=== PATIENT | female | born 1960 | race Caucasian/White ===

== ENCOUNTER 2016-09-16 10:14 | Emergency (ER) | payer BC ==
[~2016-09-16] VITALS: Ht 165.1 cm; Wt 79.8 kg
[~2016-09-16 10:14] MED LIST: ASPI-498 PO; CAR125T PO; LEVOTAB51 PO; MAGNTAB16 PO; NAPR250T74 PO; TIZA4CAP7 PO; ZOLP10TA PO
[2016-09-16 10:58] LABS: Basophils # (auto) 0.1 uL; Basophils % (auto) 0.7 % (0.0-2.0); Eosinophils # (auto) 0.1 uL; Eosinophils % (auto) 0.8 % (0.0-7.0); Hematocrit 42.8 % (36.0-46.0); Hemoglobin 14.7 g/dL (12.2-16.2); Lymphocytes # (auto) 3.2 uL; Lymphocytes % (auto) 28.7 % (10.0-50.0); Mean Corpuscular Hemoglobin 30.6 pg (28.0-32.0); Mean Corpuscular Hgb Conc. 34.4 g/dL (32.0-36.0); Mean Corpuscular Volume 88.9 fL (80.0-100.0); Mean Platelet Volume 7.2 fL (7.4-10.4); Monocytes # (auto) 0.7 uL; Monocytes % (auto) 6.2 % (0.0-12.0); Neutrophils # (auto) 7.1 uL; Neutrophils % (auto) 63.6 % (37.0-80.0); Platelet Count (auto) 426 10^3/uL (140-450); White Blood Cell 11.2 10^3/uL (4.4-10.8)
[2016-09-16] MEDS ORDERED: SODIUM CHLORIDE 0.9% 1,000 ML IV ONE (11:12)
[2016-09-16] MEDS ORDERED: LABETALOL HCL 5 MG/ML 4ML SYRINGE IV ONE (11:15)
[2016-09-16] MEDS ORDERED: FUROSEMIDE 20 MG/2 ML VIAL IV ONE (11:15)
[2016-09-16] MEDS ORDERED: PROMETHAZINE HCL 25 MG/ML 1ML IV ONE (11:15)
[2016-09-16 11:23] LABS: Albumin 3.9 g/dL (3.4-5.0); BUN/Creatinine Ratio 12.8; Bilirubin, Total 0.6 mg/dL (0.2-1.0); Calcium 9.2 mg/dL (8.5-10.1); INR 0.92 (0.9-1.15); Partial Thromboplastin Time 25.7 sec (22.64-33.71); Potassium 3.7 mmol/L (3.5-5.1); Total Protein 7.6 g/dL (6.4-8.2)
[2016-09-16] MEDS ORDERED: LORazepam 0.5 MG TAB PO ONE (13:45)
[2016-09-16 14:10] LABS: Urine RBC None Seen /hpf (0 - 4)
[2016-09-16 14:20] LABS: Urine Bilirubin Negative (Negative); Urine Blood Negative /uL (Negative); Urine Color Yellow (Yellow); Urine Glucose Normal (Normal); Urine Ketone Negative (Negative); Urine Nitrite Negative (Negative); Urine Squamous Epithelial Cell FEW /hpf (<5); Urine Urobilinogen Normal (Negative); Urine pH 5.5 (5.0-8.0)
[2016-09-16] MEDS ORDERED: hydrALAZINE HCL 20 MG/ML VL IV ONE (15:00)
[2016-09-16] MEDS ORDERED: OXYCODONE W/ ACETAMINOPHEN 5/325MG TABLET PO ONE (15:00)
[2016-09-16 16:32] VITALS: BP 146/88
== END 2016-09-16 17:14 | disposition home or self-care (01) ==
LOC: ER 10:17
DX: I10 Essential (primary) hypertension (principal); G44.209 Tension-type headache, unspecified, not intractable; I25.10 Atherosclerotic heart disease of native coronary artery without angina pectoris; K21.9 Gastro-esophageal reflux disease without esophagitis; E78.5 Hyperlipidemia, unspecified; F41.1 Generalized anxiety disorder; Z88.0 Allergy status to penicillin; Z88.1 Allergy status to other antibiotic agents; Z79.82 Long term (current) use of aspirin; Z79.899 Other long term (current) drug therapy; Z90.710 Acquired absence of both cervix and uterus; Z90.49 Acquired absence of other specified parts of digestive tract
CPT/HCPCS: 36415; 71020; 80053; 81001; 82150; 83690; 83735; 84443; 85025; 85610; 85730; 93005; 94761; 96361; 96374; 96375; 99285; J0360; J1940; J2550; J3490; J7030

== ENCOUNTER 2017-05-03 09:55 | Emergency (ER) | payer BC ==
[~2017-05-03] VITALS: Ht 165.1 cm; Wt 86.2 kg
[2017-05-03 09:56] VITALS: BP 128/61
[2017-05-03] MEDS ORDERED: KETOROLAC TROMETH 60MG/2ML VIAL IM ONE (11:00)
== END 2017-05-03 11:43 | disposition home or self-care (01) ==
LOC: ER 09:55
DX: S39.012A Strain of muscle, fascia and tendon of lower back, initial encounter (principal); S30.0XXA Contusion of lower back and pelvis, initial encounter; S70.01XA Contusion of right hip, initial encounter; K21.9 Gastro-esophageal reflux disease without esophagitis; E78.5 Hyperlipidemia, unspecified; I10 Essential (primary) hypertension; Z86.73 Personal history of transient ischemic attack (TIA), and cerebral infarction without residual deficits; Z90.89 Acquired absence of other organs; Z90.710 Acquired absence of both cervix and uterus; Z79.899 Other long term (current) drug therapy; Z88.2 Allergy status to sulfonamides; Z88.0 Allergy status to penicillin; Z88.8 Allergy status to other drugs, medicaments and biological substances; W19.XXXA Unspecified fall, initial encounter; Y93.89 Activity, other specified; Y99.8 Other external cause status; Y92.89 Other specified places as the place of occurrence of the external cause
CPT/HCPCS: 72100; 72220; 96372; 99284; J1885

== ENCOUNTER 2018-09-30 11:24 | Inpatient (IN) | payer BC, OTHER ==
[~2018-09-30] VITALS: Ht 165.1 cm; Wt 91.0 kg
[2018-09-30] MEDS ORDERED: PANTOPRAZOLE 40 MG/10 ML VIAL INJ IV ONE (11:45)
[2018-09-30] MEDS ORDERED: SODIUM CHLORIDE 0.9% 1,000 ML IV ONE ×2 (11:45)
[2018-09-30 12:21] LABS: Hematocrit 36.6 % (36.0-46.0); Mean Corpuscular Hgb Conc. 32.8 g/dL (32.0-36.0); Mean Corpuscular Volume 91.5 fL (80.0-100.0); Platelet Count (auto) 333 10^3/uL (140-450); Red Blood Cells 4.01 10^6/uL (4.0-5.20); Red Cell Distribution Width 13.8 % (11.8-14.3)
[2018-09-30 12:26] LABS: Albumin 2.8 g/dL (3.4-5.0); Calcium 8.6 mg/dL (8.5-10.1); Potassium 3.7 mmol/L (3.5-5.1)
[2018-09-30 12:28] LABS: Basophils % (manual) 0 (0.0-2.0); Blast Cells 0; Eosinophils % (manual) 0 (0-7); INR 0.94 (0.9-1.15); Metamyelocytes % 0; Myelocytes % 0; Partial Thromboplastin Time 29.6 sec (23.64-32.05); Promyelocytes % 0; Reactive Lymphocytes 0
[2018-09-30 12:32] LABS: BUN/Creatinine Ratio 11.6; Bilirubin, Total 0.5 mg/dL (0.2-1.0); Total Protein 6.7 g/dL (6.4-8.2)
[2018-09-30] MEDS ORDERED: OCTREOTIDE ACETATE 100 MCG in SODIUM CHL 0.9% 50 ML IV ONE (13:00)
[2018-09-30] MEDS ORDERED: OCTREOTIDE ACETATE 500 MCG in SODIUM CHL 0.9% 99 ML IV SCH (13:00)
[2018-09-30 13:11] LABS: Band Neutrophils % (manual) 7; Lymphocytes % (manual) 10 (10.0-50.0); Monocytes % (manual) 12 (0-12)
[2018-09-30] MEDS ORDERED: ONDANSETRON HCL 4 MG/2 ML VIAL IV ONE (13:30)
[2018-09-30] MEDS ORDERED: MORPHINE SULFATE 4 MG/ML SYR/VIAL IV ONE (13:30)
[2018-09-30] MEDS ORDERED: LEVOFLOXACIN 500MG 100 ML IV ONE (14:00)
[2018-09-30] MEDS ORDERED: metroNIDAZOLE 500MG/100ML 100 ML IV ONE (14:00)
[2018-09-30] MEDS ORDERED: MONT5CHW17 PO (14:19)
[2018-09-30] MEDS ORDERED: AML5T PO (14:19)
[2018-09-30] MEDS ORDERED: FLUO-125 PO (14:19)
[2018-09-30] MEDS ORDERED: ROSU20TA14 PO (14:19)
[2018-09-30] MEDS ORDERED: CARV25TA PO (14:19)
[2018-09-30] MEDS ORDERED: FLEC50TA15 PO (14:19)
[2018-09-30] MEDS ORDERED: LISI2.5T47 PO (14:19)
[2018-09-30] MEDS ORDERED: PERCOT PO (14:47)
[2018-09-30] MEDS ORDERED: NITROGLYCERIN 0.4 MG SL TAB SL PRN (16:30)
[2018-09-30] MEDS ORDERED: MORPHINE SULF INJ 2 MG/ML SYRINGE 1ML IV PRN (16:30)
[2018-09-30] MEDS: SODIUM CHLORIDE 0.9% 1,000 ML IV SCH (16:38)
--- NOTE | 2018-09-30 18:13 | NUR ---
RECEIVED PATIENT. RECEIVED PATIENT TO THE FLOOR, A/O X4 NO SIGNS AND SYMPTOMS OF DISTRESS NOTED. PATIENT IS AMBULATORY AND AMBULATED TO THE ED. BED LOCKED IN LOWEST POSITION WITH TWO SIDE RAILS UP AND CALL LIGHT IN REACH. INSTRUCTED THE PATIENT ON THE PLAN OF CARE AND TO CALL NEEDED I WILL CONTINUE TO MONITOR Q HOURLY AND PRN.
[2018-09-30] MEDS: ONDANSETRON HCL 4 MG/2 ML VIAL IV PRN (18:34)
[2018-09-30] MEDS ORDERED: ESTR1TAB3 TD (18:34)
[2018-09-30 18:35] VITALS: BP 123/66
[2018-09-30 18:49] LABS: Urine Bacteria MOD /hpf (None Seen); Urine Blood Negative /uL (Negative); Urine Hyaline Cast MOD /lpf (0 - 2); Urine Mucus FEW (None Seen); Urine Specific Gravity 1.012 (1.001-1.035); Urine WBC 2 /hpf (0 - 5)
[2018-09-30 18:52] VITALS: BP 123/66
--- NOTE | 2018-09-30 19:10 | NUR ---
Primary MD contact Attempted to contact patient's PCP. Unable to contact, office is closed.
--- NOTE | 2018-09-30 19:45 | NUR ---
Opening Shift Note Assumed care of patient, awake and alert, oriented x 4. On room air with even and unlabored respirations. No S/S of distress or SOB. IV intact and patent. Patient turns independently in bed. Patient reports LBM was earlier today, denies diarrhea. Patient report abd pain 4/10 only upon palpation. Bed low locked position with side rails up x 2 and call light within reach. Instructed on POC for GI consult, stool sample, IVF, IV Abx, and pain management, patient verbalized understanding. Instructed to call for assist PRN, will continue to monitor for changes Q1hr and PRN.
[2018-09-30 22:00] VITALS: BP 111/60
[2018-09-30] MEDS: metroNIDAZOLE 500MG/100ML 100 ML IV SCH (22:00)
--- NOTE | 2018-09-30 22:00 | NUR ---
Cooling Measures applied. Patient currently has temp of 100.3 , cooling measures in place.
[2018-09-30] MEDS: METOPROLOL TARTRATE 25 MG TAB PO SCH (22:04)
--- NOTE | 2018-09-30 23:10 | NUR ---
Re-Assessment temp 99.7 F
[2018-09-30] MEDS: ZOLPIDEM TARTRATE 5 MG TAB PO PRN (23:15)
--- NOTE | 2018-10-01 | NUR ---
Aakash Colón NP RE: Temperature patient admit dx sepsis, patients temperature 99.7F after cooling measures for a temperature of 100.3F. Patient in no s/s of distress. Awaiting call back, will continue care
--- NOTE | 2018-10-01 00:30 | NUR ---
Received call back from REYNA Colón Updated on patient status, received new order for Tylenol 650mg PO q6hrs PRN for fever >100.2 or mild pain. Read back and verified, will carry out orders and continue care.
[2018-10-01] MEDS: ACETAMINOPHEN 325 MG TAB PO PRN ×2 (00:51→20:15)
[2018-10-01] MEDS: SODIUM CHLORIDE 0.9% 1,000 ML IV SCH ×2 (03:02→12:30)
[2018-10-01 05:00] VITALS: BP 107/62
[2018-10-01 05:10] LABS: Basophils # (auto) 0.1 uL; Basophils % (auto) 0.4 % (0.0-2.0); Eosinophils # (auto) 0.3 uL; Lymphocytes # (auto) 1.9 uL; Lymphocytes % (auto) 10.9 % (10.0-50.0); Mean Corpuscular Hemoglobin 30.5 pg (28.0-32.0); Mean Corpuscular Hgb Conc. 33.4 g/dL (32.0-36.0); Mean Corpuscular Volume 91.3 fL (80.0-100.0); Monocytes # (auto) 1.9 uL; Monocytes % (auto) 11.1 % (0.0-12.0); Neutrophils # (auto) 13.2 uL; Neutrophils % (auto) 75.6 % (37.0-80.0); Nucleated Red Blood Cells % 0.1 %; Platelet Count (auto) 300 10^3/uL (140-450); Red Blood Cells 3.62 10^6/uL (4.0-5.20); Red Cell Distribution Width 13.7 % (11.8-14.3); White Blood Cell 17.4 10^3/uL (4.4-10.8)
[2018-10-01 05:25] LABS: Albumin 2.2 g/dL (3.4-5.0); BUN/Creatinine Ratio 11.9; Calcium 7.8 mg/dL (8.5-10.1); Magnesium 2.6 mg/dL (1.6-2.6); Potassium 3.6 mmol/L (3.5-5.1)
[2018-10-01 05:28] LABS: Bilirubin, Total 0.3 mg/dL (0.2-1.0); Total Protein 5.8 g/dL (6.4-8.2)
[2018-10-01] MEDS: metroNIDAZOLE 500MG/100ML 100 ML IV SCH ×3 (05:51→21:50)
--- NOTE | 2018-10-01 07:00 | NUR ---
Closing Note patient awake resting in bed with oxygen on at 2L via NC with even and unlabored respirations. No s/s of distress. IV intact and patent infusing NS at 100ml/hr. Endorsed care to day shift RN.
--- NOTE | 2018-10-01 07:20 | NUR ---
Opening Shift Note Assumed care of patient, awake and alert. No S/S of distress/SOB or pain. Instructed on POC and to call for assist PRN, will continue to monitor for changes Q1hr and PRN. Bed locked in lowest position with two side rails up and call light in reach. Patient states she is feeling restless and cannot get comfortable, at this time.
[2018-10-01 08:00] VITALS: BP 114/70
[2018-10-01 08:47] VITALS: BP 114/70
[2018-10-01] MEDS: MORPHINE SULF INJ 2 MG/ML SYRINGE 1ML IV PRN ×2 (09:32→16:55)
[2018-10-01] MEDS: METOPROLOL TARTRATE 25 MG TAB PO SCH ×2 (09:32→21:52)
[2018-10-01] MEDS: LEVOFLOXACIN 750MG 150 ML IV SCH (09:33)
--- NOTE | 2018-10-01 09:35 | NUR ---
PATIENT COMPLAINING OF PAIN 5/10 IN ABDOMINAL AREA. MORPHINE 2 MG ADMINISTERED. WILL CONTINUE TO MONITOR.
--- NOTE | 2018-10-01 09:53 | NUR ---
Received referral to see pt regarding advanced directive and POA. Pt did acknowledge that she had requested the form. I did explain how to fill out form. Pt was aware of using the form.
[2018-10-01] MEDS ORDERED: LORazepam 0.5 MG TAB PO ONE (11:15)
--- NOTE | 2018-10-01 11:28 | NUR ---
Nutrition Consult.assessment Notes please see attached link for complete assessment Est. Needs ABW [id number] kcal (23-25 kcal/kgBW), 72-86 gms pro (1.0-1.2 gms/kgBW d/t severe hypoalbuminemia). Will continue to monitor pertinent labs and reassess nutrient need prn Addendum: 10/01/18 at [address] Amended: Links added.
[2018-10-01] MEDS: Ensure Enlive Strawberry 8oz Bottle PO SCH ×2 (12:00→18:22)
[2018-10-01 13:00] VITALS: BP 116/64
--- NOTE | 2018-10-01 14:50 | NUR ---
CALLED DR FARRELL TO REPORT LAB STOOL RESULTS OF SHIGA TOXIN. DR REGAN I WILL CALL PHARMACY DIRECTED BY TO DISCUSS APPROPRIATE ANTIBIOTICS.
--- NOTE | 2018-10-01 15:17 | NUR ---
RECEIVED A CALL FROM BENEDICTO IN PHARMACY. PER ANTIBIOTICS ARE NOT RECOMMENDED FOR THE SHIGA TOXIN THE SYMPTOMS WILL RESOLVE ON THEIR OWN.
--- NOTE | 2018-10-01 15:30 | NUR ---
PT REPORTS THAT SHE WALKS FINE AND DOES NOT NEED P.T.
--- NOTE | 2018-10-01 16:45 | NUR ---
PATIENT PROVIDED SPECIMEN CUP X 2
[2018-10-01 16:52] VITALS: BP 122/60
[2018-10-01] MEDS: ONDANSETRON HCL 4 MG/2 ML VIAL IV PRN (16:55)
--- NOTE | 2018-10-01 19:50 | NUR ---
Opening Shift Note Assumed care of patient, awake and alert, oriented x 4. On room air with even and unlabored respirations. No S/S of distress or SOB. IV intact and patent infusing NS 0.9% at 100ml/hr. Patient turns independently in bed. Patient reports LBM was today x 3 soft liquid brown stool, denies diarrhea. Patient report abd pain 6/10 only upon palpation. Bed low locked position with side rails up x 2 and call light within reach. Instructed on POC for IVF, IV Abx, and pain management, patient verbalized understanding. Instructed to call for assist PRN, will continue to monitor for changes Q1hr and PRN.
[2018-10-01] MEDS: ZOLPIDEM TARTRATE 5 MG TAB PO PRN (21:50)
[2018-10-01 22:11] VITALS: BP 124/61
[2018-10-02] MEDS: SODIUM CHLORIDE 0.9% 1,000 ML IV SCH ×3 (03:04→18:01)
[2018-10-02 05:31] VITALS: BP 131/75
[2018-10-02 06:10] LABS: Hematocrit 32.5 % (36.0-46.0); Mean Corpuscular Hemoglobin 30.7 pg (28.0-32.0); Mean Corpuscular Hgb Conc. 33.7 g/dL (32.0-36.0); Platelet Count (auto) 302 10^3/uL (140-450); Red Blood Cells 3.57 10^6/uL (4.0-5.20); Red Cell Distribution Width 13.8 % (11.8-14.3); White Blood Cell 13.5 10^3/uL (4.4-10.8)
[2018-10-02] MEDS: metroNIDAZOLE 500MG/100ML 100 ML IV SCH ×3 (06:11→22:13)
[2018-10-02 06:22] LABS: BUN/Creatinine Ratio 7.2; Calcium 7.9 mg/dL (8.5-10.1); Potassium 3.3 mmol/L (3.5-5.1)
[2018-10-02 06:34] LABS: Basophils % (manual) 0 (0.0-2.0); Blast Cells 0; Metamyelocytes % 0; Myelocytes % 0; Promyelocytes % 0; Reactive Lymphocytes 0
--- NOTE | 2018-10-02 07:00 | NUR ---
Closing Note patient awake resting in bed on room air with even and unlabored respirations. No s/s of distress. IV intact and patent infusing NS at 100ml/hr. Endorsed care to day shift RN.
[2018-10-02 07:04] LABS: Band Neutrophils % (manual) 3; Eosinophils % (manual) 1 (0-7); Lymphocytes % (manual) 18 (10.0-50.0); Monocytes % (manual) 12 (0-12)
[2018-10-02] MEDS: Ensure Enlive Strawberry 8oz Bottle PO SCH ×3 (08:00→18:00)
--- NOTE | 2018-10-02 08:00 | NUR ---
Opening Shift Note Assumed care of patient, awake and alert. No S/S of distress/SOB, 6/10 abdominal pain. Instructed on POC and to call for assist PRN, will continue to monitor for changes Q1hr and PRN.
[2018-10-02] MEDS: ONDANSETRON HCL 4 MG/2 ML VIAL IV PRN ×3 (08:40→20:11)
[2018-10-02] MEDS: MORPHINE SULF INJ 2 MG/ML SYRINGE 1ML IV PRN ×3 (08:40→20:12)
[2018-10-02] MEDS ORDERED: CETI10CA PO (08:45)
[2018-10-02] MEDS: METOPROLOL TARTRATE 25 MG TAB PO SCH ×2 (09:29→22:22)
[2018-10-02] MEDS: LEVOFLOXACIN 750MG 150 ML IV SCH (09:30)
[2018-10-02 09:35] VITALS: BP 135/76
[2018-10-02] MEDS: LORazepam 0.5 MG TAB PO PRN ×2 (11:55→17:31)
[2018-10-02 13:04] VITALS: BP 117/67
[2018-10-02] MEDS ORDERED: POTASSIUM EFFERVESENT TAB 25 MEQ PO ONE (14:00)
[2018-10-02] MEDS ORDERED: LORATADINE 10 MG TAB PO ONE (14:30)
[2018-10-02 17:10] VITALS: BP 128/72
[2018-10-02] MEDS: Pro-Stat SF 30ml Vanilla PO SCH (18:00)
--- NOTE | 2018-10-02 19:45 | NUR ---
Opening Shift Note Assumed care of patient, awake and alert, oriented x 4. On room air with even and unlabored respirations. No S/S of distress or SOB. IV intact and patent infusing NS 0.9% at 100ml/hr. Patient turns independently in bed and ambulates independently. Patient reports LBM was today, reports it is watery.Bed low locked position with side rails up x 2 and call light within reach. Instructed on POC for IVF, IV Abx, and pain management, patient verbalized understanding. Instructed to call for assist PRN, will continue to monitor for changes Q1hr and PRN.
[2018-10-02 21:31] VITALS: BP 117/70
[2018-10-02] MEDS: ZOLPIDEM TARTRATE 5 MG TAB PO PRN (22:14)
[2018-10-03 05:16] VITALS: BP 107/54
[2018-10-03 05:46] LABS: Hematocrit 33.3 % (36.0-46.0); Hemoglobin 11.3 g/dL (12.2-16.2); Mean Corpuscular Hemoglobin 30.7 pg (28.0-32.0); Mean Corpuscular Hgb Conc. 33.9 g/dL (32.0-36.0); Mean Corpuscular Volume 90.5 fL (80.0-100.0); Platelet Count (auto) 315 10^3/uL (140-450); Red Blood Cells 3.68 10^6/uL (4.0-5.20); White Blood Cell 10.5 10^3/uL (4.4-10.8)
[2018-10-03 05:47] LABS: Calcium 7.9 mg/dL (8.5-10.1); Potassium 3.5 mmol/L (3.5-5.1)
[2018-10-03 05:53] LABS: Basophils % (manual) 0 (0.0-2.0); Blast Cells 0; Myelocytes % 0; Promyelocytes % 0; Reactive Lymphocytes 0
[2018-10-03] MEDS: SODIUM CHLORIDE 0.9% 1,000 ML IV SCH ×2 (06:11→14:47)
[2018-10-03] MEDS: metroNIDAZOLE 500MG/100ML 100 ML IV SCH ×3 (06:11→22:03)
[2018-10-03 06:24] LABS: Band Neutrophils % (manual) 3; Eosinophils % (manual) 4 (0-7); Lymphocytes % (manual) 28 (10.0-50.0); Metamyelocytes % 2; Monocytes % (manual) 7 (0-12)
[2018-10-03] MEDS: CARISOPRODOL 350 MG TAB PO PRN ×2 (07:55→18:48)
[2018-10-03] MEDS: Ensure Enlive Strawberry 8oz Bottle PO SCH (08:00)
[2018-10-03] MEDS: Pro-Stat SF 30ml Vanilla PO SCH ×2 (08:00→18:17)
--- NOTE | 2018-10-03 08:00 | NUR ---
Opening Shift Note Assumed care of patient, awake and alert. No S/S of distress/SOB or pain. Instructed on POC and to call for assist PRN, will continue to monitor for changes Q1hr and PRN.
[2018-10-03 09:00] VITALS: BP 131/51
[2018-10-03] MEDS: LORATADINE 10 MG TAB PO SCH (09:52)
[2018-10-03] MEDS: METOPROLOL TARTRATE 25 MG TAB PO SCH ×2 (09:53→22:04)
[2018-10-03] MEDS: LEVOFLOXACIN 750MG 150 ML IV SCH (09:53)
[2018-10-03] MEDS: MORPHINE SULF INJ 2 MG/ML SYRINGE 1ML IV PRN ×2 (11:24→17:00)
[2018-10-03] MEDS: ONDANSETRON HCL 4 MG/2 ML VIAL IV PRN ×2 (11:24→17:00)
[2018-10-03 13:00] VITALS: BP 113/65
[2018-10-03] MEDS: OXYCODONE W/ ACETAMINOPHEN 5/325MG TABLET PO PRN ×2 (13:37→20:30)
--- NOTE | 2018-10-03 13:56 | NUR ---
Nutrition Follow-up Notes Wt.: 89.9 kg as of yesterday. Pt's asleep, no immediate family member at bedside when rounded this morning. Pt's no signs of distress noted earlier, on Clear Liquid diet with Prostat 1 pkt BID, has poor PO intake aeb 50% ave. consumed meals (x6) in last 2.5 days. Noted pt's to start today on Full Liquid diet . Est. Needs ABW [id number] kcal (23-25 kcal/kgBW), 72-86 gms pro (1.0-1.2 gms/kgBW d/t severe hypoalbuminemia). Will continue to monitor pertinent labs and reassess nutrient need prn Labs: Gluc 109 H, Ca 7.9 L; Tpro 5.8 L, Alb 2.2 L Skin: Nash scale 20, low risk, skin intact per [employer]. GI: Pt had 4x BM this morning per [employer]. PES: Altered nutrition related lab values r/t acute/chronic medical condition aeb hyperglycemia, severe hypoalb, hypocalcemia Obesity r/t food intake more than body requirement aeb 156% IBW, BMI 32.6 kg/m2 and increased body adiposity Will continue to monitor PO intake, skin status, pertinent labs and weight trend. F/u in 3 to 5 days. Rec.: 1.) Advance oral diet (Soft Cardiac diet) when medically appropriate. 2.) Continue close supervision during meals. 2.) If Albumin level continues trending down, consider Prostat 1 pkt BID. 3.) Refer pt to RD for further nutrition education and weight monitoring upon discharge. 4.) Continue current plan of care.
--- NOTE | 2018-10-03 14:10 | NUR ---
IV removal IV DC'd on the right antecubital with clean sterile technique, catheter fully intact. Pressure dressing applied to site. Patient tolerated well.
--- NOTE | 2018-10-03 14:15 | NUR ---
IV insertion IV access obtained, via clean sterile technique by inserting 20 gauge catheter at left antecubital after one attempt. IV secured properly. No trauma to site. Patient tolerated well.
[2018-10-03 17:26] VITALS: BP 121/61
--- NOTE | 2018-10-03 20:00 | NUR ---
Opening Shift Note: A&Ox4, resting in bed. Room air, pain level 3/10 in abdomen, and ambulates independently without assistive devices. Bed locked in lowest position, side rails up x2, and call light within reach. IV 20 g in left AC running NS at 100 ml/hr inserted on 10/03/18. Skin intact. Poor appetite present along with multiple loose stools per patient. POC discussed and questions answered. Will continue to round prn.
[2018-10-03 22:00] VITALS: BP 114/70
[2018-10-03] MEDS: MONTELUKAST SODIUM 10 MG TAB PO SCH (22:04)
[2018-10-03] MEDS: ZOLPIDEM TARTRATE 5 MG TAB PO PRN (22:05)
[2018-10-03] MEDS: FLECAINIDE ACETATE 50 MG TAB PO SCH (22:05)
[2018-10-04] MEDS: SODIUM CHLORIDE 0.9% 1,000 ML IV SCH ×3 (02:22→21:02)
[2018-10-04 05:00] VITALS: BP 120/72
[2018-10-04 05:35] LABS: Hematocrit 32.6 % (36.0-46.0); Hemoglobin 10.9 g/dL (12.2-16.2); Mean Corpuscular Hemoglobin 30.6 pg (28.0-32.0); Mean Corpuscular Hgb Conc. 33.6 g/dL (32.0-36.0); Mean Corpuscular Volume 91.1 fL (80.0-100.0); Platelet Count (auto) 332 10^3/uL (140-450); Red Blood Cells 3.58 10^6/uL (4.0-5.20); Red Cell Distribution Width 13.7 % (11.8-14.3); White Blood Cell 9.4 10^3/uL (4.4-10.8)
[2018-10-04 05:47] LABS: Basophils % (manual) 0 (0.0-2.0); Blast Cells 0; Eosinophils % (manual) 0 (0-7); Myelocytes % 0; Promyelocytes % 0; Reactive Lymphocytes 0
[2018-10-04] MEDS: metroNIDAZOLE 500MG/100ML 100 ML IV SCH (05:51)
[2018-10-04 06:39] LABS: Band Neutrophils % (manual) 4; Lymphocytes % (manual) 22 (10.0-50.0); Metamyelocytes % 2; Monocytes % (manual) 7 (0-12)
[2018-10-04] MEDS: Pro-Stat SF 30ml Vanilla PO SCH ×2 (08:00→18:00)
--- NOTE | 2018-10-04 08:00 | NUR ---
Opening Shift Note Assumed care of patient, awake and alert. No S/S of distress/SOB, 5/10 abdominal pain. Instructed on POC and to call for assist PRN, will continue to monitor for changes Q1hr and PRN.
[2018-10-04] MEDS: CARISOPRODOL 350 MG TAB PO PRN ×2 (08:57→17:15)
[2018-10-04 09:00] VITALS: BP 123/74
[2018-10-04] MEDS: METOPROLOL TARTRATE 25 MG TAB PO SCH ×2 (10:11→21:03)
[2018-10-04] MEDS: LEVOFLOXACIN 750MG 150 ML IV SCH (10:11)
[2018-10-04] MEDS: LORATADINE 10 MG TAB PO SCH (10:11)
[2018-10-04] MEDS: FLECAINIDE ACETATE 50 MG TAB PO SCH ×2 (10:12→21:03)
[2018-10-04] MEDS ORDERED: PANTOPRAZOLE 40 MG TAB PO ONE (11:00)
[2018-10-04] MEDS: MORPHINE SULF INJ 2 MG/ML SYRINGE 1ML IV PRN ×2 (11:52→21:03)
[2018-10-04] MEDS: ONDANSETRON HCL 4 MG/2 ML VIAL IV PRN ×2 (11:52→21:04)
[2018-10-04] MEDS: ACETAMINOPHEN 325 MG TAB PO PRN (12:08)
[2018-10-04 13:00] VITALS: BP 139/73
[2018-10-04] MEDS: metroNIDAZOLE 500 MG TAB PO SCH ×2 (13:31→21:02)
[2018-10-04 17:51] VITALS: BP 134/79
[2018-10-04] MEDS: OXYCODONE W/ ACETAMINOPHEN 5/325MG TABLET PO PRN (18:08)
--- NOTE | 2018-10-04 19:30 | NUR ---
Opening Shift Note: A&Ox4, resting in bed. Room air, pain level 4/10 in abdomen, and ambulates independently without assistive devices. Bed locked in lowest position, side rails up x2, and call light within reach. IV 20 g in left AC running NS at 100 ml/hr inserted on 10/03/18. Skin intact. Poor appetite present along with multiple loose stools per patient. POC discussed and questions answered. Will continue to round prn.
[2018-10-04] MEDS: MONTELUKAST SODIUM 10 MG TAB PO SCH (21:03)
[2018-10-04 22:00] VITALS: BP 130/72
[2018-10-04] MEDS: ZOLPIDEM TARTRATE 5 MG TAB PO PRN (22:56)
[2018-10-05] MEDS: OXYCODONE W/ ACETAMINOPHEN 5/325MG TABLET PO PRN ×4 (03:00→21:13)
[2018-10-05] MEDS: CARISOPRODOL 350 MG TAB PO PRN ×2 (04:48→12:48)
[2018-10-05 05:04] VITALS: BP 125/67
[2018-10-05 05:13] LABS: Basophils # (auto) 0 uL; Basophils % (auto) 0.5 % (0.0-2.0); Eosinophils # (auto) 0.2 uL; Eosinophils % (auto) 2.9 % (0.0-7.0); Hematocrit 31.7 % (36.0-46.0); Hemoglobin 10.8 g/dL (12.2-16.2); Lymphocytes % (auto) 23.7 % (10.0-50.0); Mean Corpuscular Hemoglobin 30.5 pg (28.0-32.0); Mean Corpuscular Volume 89.8 fL (80.0-100.0); Monocytes # (auto) 0.8 uL; Monocytes % (auto) 9.1 % (0.0-12.0); Neutrophils # (auto) 5.4 uL; Neutrophils % (auto) 63.8 % (37.0-80.0); Nucleated Red Blood Cells % 0.1 %; Platelet Count (auto) 322 10^3/uL (140-450); Red Blood Cells 3.53 10^6/uL (4.0-5.20); Red Cell Distribution Width 13.9 % (11.8-14.3); White Blood Cell 8.4 10^3/uL (4.4-10.8)
[2018-10-05 05:17] LABS: Anion Gap 10 (5-15); BUN/Creatinine Ratio 7.7; Blood Urea Nitrogen 6 mg/dL (7-18); Calcium 7.5 mg/dL (8.5-10.1); Carbon Dioxide 24 mmol/L (21-32); Chloride 110 mmol/L (98-107); GFR African American 98 mL/min; GFR Non-African American 81 mL/min; Glucose 107 mg/dL (74-106); Potassium 3.3 mmol/L (3.5-5.1); Sodium 144 mmol/L (136-145)
[2018-10-05] MEDS: metroNIDAZOLE 500 MG TAB PO SCH ×3 (05:59→21:12)
[2018-10-05] MEDS: SODIUM CHLORIDE 0.9% 1,000 ML IV SCH ×2 (05:59→16:33)
[2018-10-05] MEDS: Pro-Stat SF 30ml Vanilla PO SCH ×2 (08:00→18:00)
--- NOTE | 2018-10-05 08:00 | NUR ---
Opening Shift Note Assumed care of patient, awake and alert. No S/S of distress/SOB or pain. Stated episodes of diarrhea last night. Instructed on POC and to call for assist PRN, will continue to monitor for changes Q1hr and PRN.
[2018-10-05 09:00] VITALS: BP 146/70
[2018-10-05] MEDS: METOPROLOL TARTRATE 25 MG TAB PO SCH ×2 (09:44→21:12)
[2018-10-05] MEDS: LEVOFLOXACIN 750MG 150 ML IV SCH (09:45)
[2018-10-05] MEDS: PANTOPRAZOLE 40 MG TAB PO SCH (09:45)
[2018-10-05] MEDS: LORATADINE 10 MG TAB PO SCH (09:45)
[2018-10-05] MEDS: FLECAINIDE ACETATE 50 MG TAB PO SCH ×2 (09:46→21:12)
[2018-10-05] MEDS ORDERED: POTASSIUM CHL 20 Meq TABLET PO ONE (12:00)
[2018-10-05 13:00] VITALS: BP 132/70
[2018-10-05] MEDS: ACETAMINOPHEN 325 MG TAB PO PRN ×2 (16:48→21:13)
[2018-10-05 17:00] VITALS: BP 136/89
--- NOTE | 2018-10-05 19:30 | NUR ---
Opening Shift Note: A&Ox4, resting in bed. Room air, pain level 4/10 in abdomen, and ambulates independently without assistive devices. Bed locked in lowest position, side rails up x2, and call light within reach. IV 20 g in left AC running NS at 100 ml/hr inserted on 10/03/18. Skin intact. Poor appetite with intermittent nausea/bloating. POC discussed and questions answered. Will continue to round prn.
[2018-10-05] MEDS: MONTELUKAST SODIUM 10 MG TAB PO SCH (21:12)
[2018-10-05 22:00] VITALS: BP 138/77
[2018-10-05] MEDS: LORazepam 0.5 MG TAB PO PRN (23:00)
--- NOTE | 2018-10-05 23:00 | NUR ---
High blood pressure: Patient stated she felt like her blood pressure was elevated because she feels "tight and her head feels full with pressure". Vitals signs were BP 144/70 and HR 59. Per patient, blood pressure is high for her. Will page at 0000 for possible blood pressure medication order.
[2018-10-05] MEDS: MORPHINE SULF INJ 2 MG/ML SYRINGE 1ML IV PRN (23:48)
[2018-10-05] MEDS: ONDANSETRON HCL 4 MG/2 ML VIAL IV PRN (23:49)
[2018-10-05] MEDS: ZOLPIDEM TARTRATE 5 MG TAB PO PRN (23:49)
--- NOTE | 2018-10-06 | NUR ---
Page sent to information technology security analyst hospitalist in regards to possible order for prn BP medication. Patient takes norvasc 5 mg daily, coreg 25 mg bid, and lisinopril 5 mg daily at home. Currently she is receiving metoprolol 12.5 mg BID.
--- NOTE | 2018-10-06 01:00 | NUR ---
Ok to resume patient home blood pressure medication per social professionals hospitalist
[2018-10-06] MEDS: SODIUM CHLORIDE 0.9% 1,000 ML IV SCH (02:30)
[2018-10-06 04:51] VITALS: BP 120/60
[2018-10-06] MEDS: metroNIDAZOLE 500 MG TAB PO SCH (05:53)
--- NOTE | 2018-10-06 07:30 | NUR ---
Opening Shift Note Assumed care of patient, awake and alert. No S/S of distress/SOB, 3/10 abdominal pain. Instructed on POC and to call for assist PRN, will continue to monitor for changes Q1hr and PRN.
[2018-10-06] MEDS: Pro-Stat SF 30ml Vanilla PO SCH (08:00)
[2018-10-06] MEDS: PANTOPRAZOLE 40 MG TAB PO SCH (08:23)
[2018-10-06] MEDS: CARISOPRODOL 350 MG TAB PO PRN (08:24)
[2018-10-06] MEDS: LORATADINE 10 MG TAB PO SCH (08:25)
[2018-10-06] MEDS: FLECAINIDE ACETATE 50 MG TAB PO SCH (08:28)
[2018-10-06 09:00] VITALS: BP 138/71
[2018-10-06] MEDS ORDERED: POTASSIUM CHL 10 Meq TABLET PO SCH (10:00)
[2018-10-06] MEDS ORDERED: LISINOPRIL 5 MG TAB PO SCH (10:00)
[2018-10-06] MEDS: LEVOFLOXACIN 750MG 150 ML IV SCH (10:00)
[2018-10-06] MEDS: METOPROLOL TARTRATE 25 MG TAB PO SCH (10:00)
[2018-10-06] MEDS ORDERED: amLODIPine BESYLATE 5 MG TAB PO SCH (10:00)
[2018-10-06] MEDS ORDERED: CARVEDILOL 12.5 MG TAB PO SCH (10:00)
[2018-10-06 10:09] VITALS: BP 138/71
--- NOTE | 2018-10-06 11:55 | NUR ---
Discharge instructions given as ordered. Encourage to follow up with PMD Dr. Bruno in [place], [place] in 1 week as instructed. All questions and concerns addressed. Patient verbalized understanding. Medication reconciliation form completed and copy given to patient. IV removed with catheter intact, pressure dressing applied. Patient ambulated with all personal belongings, accompanied by staff and family member. No distress noted at time of departure.
== END 2018-10-06 11:55 | disposition home or self-care (01) | DRG 872 ==
LOC: ER 11:31 → TELE 16:16 → TELE-CENTR 18:10 → CENTRAL 10-04 11:10
PROVIDERS: ADMIT Nurse Practitioner Acute Care; ATTEND Internal Medicine
DX: A41.9 Sepsis, unspecified organism (principal); E44.0 Moderate protein-calorie malnutrition; E87.1 Hypo-osmolality and hyponatremia; A04.4 Other intestinal Escherichia coli infections; N17.9 Acute kidney failure, unspecified; G89.29 Other chronic pain; M54.5 Low back pain; I25.10 Atherosclerotic heart disease of native coronary artery without angina pectoris; K21.9 Gastro-esophageal reflux disease without esophagitis; K76.0 Fatty (change of) liver, not elsewhere classified; N28.1 Cyst of kidney, acquired; K57.30 Diverticulosis of large intestine without perforation or abscess without bleeding; E86.0 Dehydration; I49.3 Ventricular premature depolarization; E66.9 Obesity, unspecified; I12.9 Hypertensive chronic kidney disease with stage 1 through stage 4 chronic kidney disease, or unspecified chronic kidney disease; J45.909 Unspecified asthma, uncomplicated; D63.8 Anemia in other chronic diseases classified elsewhere; E78.5 Hyperlipidemia, unspecified; F41.9 Anxiety disorder, unspecified; N18.3 Chronic kidney disease, stage 3 (moderate); Z88.0 Allergy status to penicillin; Z88.2 Allergy status to sulfonamides; Z90.710 Acquired absence of both cervix and uterus; Z90.89 Acquired absence of other organs; Z80.0 Family history of malignant neoplasm of digestive organs; Z82.49 Family history of ischemic heart disease and other diseases of the circulatory system; Z82.3 Family history of stroke; Z79.899 Other long term (current) drug therapy; Z79.891 Long term (current) use of opiate analgesic; Z68.33 Body mass index [BMI] 33.0-33.9, adult
CPT/HCPCS: 36415; 71045; 74176; 80048; 80053; 81001; 82270; 83605; 83690; 83735; 84443; 84484; 85007; 85025; 85027; 85610; 85730; 87040; 87045; 87077; 87086; 87186; 87493; 93005; 96365; 96366; 96367; 96375; G0378; J1956; J2405; J3490

== ENCOUNTER → 2020-03-18 | Outpatient (CLI) | payer OTHER ==
[~2020-03-18] MED LIST changes: +AML5T PO; -CAR125T PO; +CARV25TA PO; +CETI10CA PO; +ESTR1TAB3 TD; +FLEC50TA15 PO; +FLUO-125 PO; +LISI2.5T47 PO; -MAGNTAB16 PO; +MONT5CHW17 PO; +PERCOT PO; +ROSU20TA14 PO
== END | disposition home or self-care (01) ==
LOC: LAB 14:55
PROVIDERS: ATTEND Nurse Practitioner Family
DX: U07.1 COVID-19 (principal)
CPT/HCPCS: C9803; U0003

== ENCOUNTER → 2020-08-10 | Outpatient (CLI) | payer BC ==
[~2020-08-10] MED LIST changes: -MONT5CHW17 PO; +MONT5CHW23 PO
[2020-08-10 07:56] LABS: Basophils # (auto) 0.1 10 ^3/uL (0-0.2); Basophils % (auto) 0.7 % (0.0-2.0); Eosinophils # (auto) 0.2 10 ^3/uL (0-0.8); Eosinophils % (auto) 2.2 % (0.0-7.0); Hematocrit 34.7 % (36.0-46.0); Hemoglobin 11.9 g/dL (12.2-16.2); Lymphocytes # (auto) 2.7 10 ^3/uL (0.4-5.4); Lymphocytes % (auto) 31.6 % (10.0-50.0); Mean Corpuscular Hemoglobin 31.4 pg (28.0-32.0); Mean Corpuscular Hgb Conc. 34.3 g/dL (32.0-36.0); Mean Corpuscular Volume 91.5 fL (80.0-100.0); Monocytes # (auto) 0.7 10 ^3/uL (0-1.3); Monocytes % (auto) 8.1 % (0.0-12.0); Neutrophils # (auto) 4.9 10 ^3/uL (1.6-8.6); Neutrophils % (auto) 57.4 % (37.0-80.0); Platelet Count (auto) 296 10^3/uL (140-450); Red Blood Cells 3.79 10^6/uL (4.0-5.20); Red Cell Distribution Width 13.9 % (11.8-14.3); White Blood Cell 8.5 10^3/uL (4.4-10.8)
[2020-08-10 08:31] LABS: Potassium 4.4 mmol/L (3.5-5.1)
[2020-08-10 08:43] LABS: Albumin 3.7 g/dL (3.4-5.0); BUN/Creatinine Ratio 16.8; Bilirubin, Total 0.7 mg/dL (0.2-1.0); Calcium 8.9 mg/dL (8.5-10.1); Total Protein 7.4 g/dL (6.4-8.2)
== END | disposition home or self-care (01) ==
LOC: LAB 07:31
PROVIDERS: ATTEND Internal Medicine Cardiovascular Disease
DX: I11.9 Hypertensive heart disease without heart failure (principal); D50.8 Other iron deficiency anemias; E78.00 Pure hypercholesterolemia, unspecified
CPT/HCPCS: 36415; 80053; 80061; 85025

== ENCOUNTER 2020-09-11 14:30 | Emergency (ER) | payer BC ==
[~2020-09-11] VITALS: Ht 165.1 cm; Wt 88.5 kg
[2020-09-11] MEDS ORDERED: LIDOCAINE 1% HCL (LOCAL ANESTH.) INJ 20ML MDV ONE (14:39)
[2020-09-11] MEDS ORDERED: TETANUS-DIPTH-ACEL PERTUSSIS 0.5ML SYR Tdap IM ONE (15:00)
[2020-09-11 15:48] VITALS: BP 105/78
== END 2020-09-11 15:35 | disposition home or self-care (01) ==
LOC: ER 14:30
DX: S81.811A Laceration without foreign body, right lower leg, initial encounter (principal); I25.10 Atherosclerotic heart disease of native coronary artery without angina pectoris; K21.9 Gastro-esophageal reflux disease without esophagitis; E78.5 Hyperlipidemia, unspecified; I10 Essential (primary) hypertension; G89.29 Other chronic pain; M54.5 Low back pain; Z88.0 Allergy status to penicillin; Z88.2 Allergy status to sulfonamides; Z79.82 Long term (current) use of aspirin; Z79.899 Other long term (current) drug therapy; Z98.890 Other specified postprocedural states; Z90.710 Acquired absence of both cervix and uterus; Z90.89 Acquired absence of other organs; W26.8XXA Contact with other sharp object(s), not elsewhere classified, initial encounter; Y93.89 Activity, other specified; Y92.89 Other specified places as the place of occurrence of the external cause; Y99.8 Other external cause status
CPT/HCPCS: 12002; 90471; 90715; 99283; J2001

== ENCOUNTER 2021-01-07 07:20 | Emergency (ER) | payer BC ==
[~2021-01-07] VITALS: Ht 165.1 cm; Wt 90.7 kg
[~2021-01-07 07:20] MED LIST changes: -ESTR1TAB3 TD; +ESTR1TAB6 TD; +FLEC1TAB PO; -FLEC50TA15 PO
[2021-01-07 07:42] VITALS: BP 99/57
== END 2021-01-07 08:10 | disposition home or self-care (01) ==
LOC: ER 07:20
DX: S92.501A Displaced unspecified fracture of right lesser toe(s), initial encounter for closed fracture (principal); K21.9 Gastro-esophageal reflux disease without esophagitis; E78.5 Hyperlipidemia, unspecified; I10 Essential (primary) hypertension; Z90.710 Acquired absence of both cervix and uterus; W18.39XA Other fall on same level, initial encounter; Y93.89 Activity, other specified; Y92.89 Other specified places as the place of occurrence of the external cause; Y99.8 Other external cause status
CPT/HCPCS: 73630; 99283; L3260

== ENCOUNTER 2022-05-17 08:29 | Emergency (ER) | payer BC ==
[~2022-05-17] VITALS: Ht 165.1 cm; Wt 89.4 kg
[2022-05-17] MEDS ORDERED: KETOROLAC TROMETH 30 MG/ML 1ML VIAL IV ONE (09:15)
[2022-05-17 09:22] LABS: Basophils # (auto) 0.1 10 ^3/uL (0-0.2); Basophils % (auto) 1.4 % (0.0-2.0); Eosinophils # (auto) 0.4 10 ^3/uL (0-0.8); Eosinophils % (auto) 5.1 % (0.0-7.0); Hematocrit 31.9 % (36.0-46.0); Lymphocytes # (auto) 2.1 10 ^3/uL (0.4-5.4); Lymphocytes % (auto) 27.7 % (10.0-50.0); Mean Corpuscular Hemoglobin 32.1 pg (28.0-32.0); Mean Corpuscular Hgb Conc. 34.4 g/dL (32.0-36.0); Mean Corpuscular Volume 93.4 fL (80.0-100.0); Monocytes # (auto) 0.6 10 ^3/uL (0-1.3); Monocytes % (auto) 8.1 % (0.0-12.0); Neutrophils # (auto) 4.3 10 ^3/uL (1.6-8.6); Neutrophils % (auto) 57.7 % (37.0-80.0); Red Blood Cells 3.41 10^6/uL (4.0-5.20); Red Cell Distribution Width 14.1 % (11.8-14.3); White Blood Cell 7.5 10^3/uL (4.4-10.8)
[2022-05-17 09:38] LABS: Albumin 3.2 g/dL (3.4-5.0); Calcium 8.8 mg/dL (8.5-10.1); INR 0.83 (0.9-1.15); Partial Thromboplastin Time 24.1 sec (24.6-33.4); Potassium 4.5 mmol/L (3.5-5.1)
[2022-05-17 09:41] LABS: BUN/Creatinine Ratio 11.1; Bilirubin, Total 0.4 mg/dL (0.2-1.0); Total Protein 6.4 g/dL (6.4-8.2)
[2022-05-17] MEDS ORDERED: IOHEXOL 300 MG/ML 100ML BOTTLE IJ ONE (09:52)
[2022-05-17 11:25] LABS: Urine Bacteria FEW /hpf (None Seen); Urine Blood Negative /uL (Negative); Urine Hyaline Cast FEW /lpf (0 - 2); Urine Specific Gravity 1.011 (1.001-1.035); Urine WBC 1 /hpf (0 - 5)
[2022-05-17 12:33] VITALS: BP 122/53
== END 2022-05-17 12:49 | disposition home or self-care (01) ==
LOC: ER 08:29
DX: S00.00XA Unspecified superficial injury of scalp, initial encounter (principal); S16.1XXA Strain of muscle, fascia and tendon at neck level, initial encounter; S39.012A Strain of muscle, fascia and tendon of lower back, initial encounter; I25.10 Atherosclerotic heart disease of native coronary artery without angina pectoris; I10 Essential (primary) hypertension; F32.9 Major depressive disorder, single episode, unspecified; K21.9 Gastro-esophageal reflux disease without esophagitis; E78.5 Hyperlipidemia, unspecified; Z88.2 Allergy status to sulfonamides; Z79.899 Other long term (current) drug therapy; Z98.890 Other specified postprocedural states; Z90.710 Acquired absence of both cervix and uterus; Z90.89 Acquired absence of other organs; W18.39XA Other fall on same level, initial encounter; Y93.89 Activity, other specified; Y92.89 Other specified places as the place of occurrence of the external cause; Y99.8 Other external cause status
CPT/HCPCS: 36415; 70450; 72125; 74177; 80053; 81001; 85025; 85610; 85730; 93005; 96374; 99285; J1885; Q9967

== ENCOUNTER → 2022-10-12 | Outpatient (CLI) | payer BC ==
[~2022-10-12] MED LIST changes: +MONT5CHW12 PO; -MONT5CHW23 PO
[2022-10-12 07:31] LABS: Basophils # (auto) 0.1 10 ^3/uL (0-0.2); Basophils % (auto) 1.2 % (0.0-2.0); Eosinophils # (auto) 0.1 10 ^3/uL (0-0.8); Eosinophils % (auto) 1.7 % (0.0-7.0); Hematocrit 36.3 % (36.0-46.0); Hemoglobin 12.3 g/dL (12.2-16.2); Lymphocytes # (auto) 2.4 10 ^3/uL (0.4-5.4); Lymphocytes % (auto) 27.4 % (10.0-50.0); Mean Corpuscular Hemoglobin 31.4 pg (28.0-32.0); Mean Corpuscular Hgb Conc. 33.9 g/dL (32.0-36.0); Mean Corpuscular Volume 92.5 fL (80.0-100.0); Monocytes # (auto) 0.8 10 ^3/uL (0-1.3); Monocytes % (auto) 8.5 % (0.0-12.0); Neutrophils # (auto) 5.4 10 ^3/uL (1.6-8.6); Neutrophils % (auto) 61.2 % (37.0-80.0); Red Blood Cells 3.92 10^6/uL (4.0-5.20); Red Cell Distribution Width 13.4 % (11.8-14.3); White Blood Cell 8.9 10^3/uL (4.4-10.8)
[2022-10-12 08:20] LABS: Calcium 8.9 mg/dL (8.5-10.1); Potassium 4.2 mmol/L (3.5-5.1)
[2022-10-12 08:25] LABS: Bilirubin, Total 0.6 mg/dL (0.2-1.0); Total Protein 7.1 g/dL (6.4-8.2)
== END | disposition home or self-care (01) ==
LOC: LAB 07:18
PROVIDERS: ATTEND Internal Medicine Cardiovascular Disease
DX: I11.9 Hypertensive heart disease without heart failure (principal); E78.00 Pure hypercholesterolemia, unspecified; D50.8 Other iron deficiency anemias
CPT/HCPCS: 36415; 80053; 80061; 85025

== ENCOUNTER → 2023-03-16 | Outpatient (CLI) | payer BC ==
[2023-03-16 07:36] LABS: Basophils # (auto) 0 10 ^3/uL (0-0.2); Basophils % (auto) 0.6 % (0.0-2.0); Eosinophils # (auto) 0 10 ^3/uL (0-0.8); Hematocrit 38.6 % (36.0-46.0); Lymphocytes # (auto) 1.1 10 ^3/uL (0.4-5.4); Lymphocytes % (auto) 15.4 % (10.0-50.0); Mean Corpuscular Hgb Conc. 33.7 g/dL (32.0-36.0); Monocytes # (auto) 0.4 10 ^3/uL (0-1.3); Monocytes % (auto) 5.7 % (0.0-12.0); Neutrophils # (auto) 5.8 10 ^3/uL (1.6-8.6); Neutrophils % (auto) 78.3 % (37.0-80.0); Red Cell Distribution Width 13.1 % (11.8-14.3); White Blood Cell 7.4 10^3/uL (4.4-10.8)
[2023-03-16 08:53] LABS: Alanine Aminotransferase 23 U/L (7-40); Albumin 4.9 g/dL (3.2-4.8); Alkaline Phosphatase 64 U/L (46-116); Anion Gap 10 (5-15); Aspartate Aminotransferase 16 U/L (13-40); BUN/Creatinine Ratio 13.6 (10.0-20.0); Bilirubin, Total 0.8 mg/dL (0.2-1.0); Blood Urea Nitrogen 14 mg/dL (9-23); Calcium 10.2 mg/dL (8.5-10.1); Carbon Dioxide 22 mmol/L (20-30); Chloride 106 mmol/L (98-107); Cholesterol 169 mg/dL (< 200); Glucose 124 mg/dL (74-106); HDL Cholesterol 50 mg/dL (40-59); LDL Cholesterol 97 mg/dL (< 100); Potassium 4.2 mmol/L (3.5-5.1); Sodium 138 mmol/L (136-145); Triglycerides 149 mg/dL (< 150)
[2023-03-16 08:54] LABS: Total Protein 7.6 g/dL (5.7-8.2)
== END | disposition home or self-care (01) ==
LOC: LAB 07:17
DX: D50.8 Other iron deficiency anemias (principal); E78.00 Pure hypercholesterolemia, unspecified; R79.89 Other specified abnormal findings of blood chemistry
CPT/HCPCS: 36415; 80053; 80061; 85025

== ENCOUNTER → 2023-10-18 | Outpatient (CLI) | payer BC ==
[~2023-10-18] MED LIST changes: +CARV-217 PO; -CARV25TA PO
[2023-10-18 09:39] LABS: Basophils # (auto) 0.1 10 ^3/uL (0-0.2); Basophils % (auto) 0.8 % (0.0-2.0); Eosinophils # (auto) 0.4 10 ^3/uL (0-0.8); Eosinophils % (auto) 2.5 % (0.0-7.0); Hematocrit 34.4 % (36.0-46.0); Hemoglobin 11.7 g/dL (12.2-16.2); Lymphocytes # (auto) 2.5 10 ^3/uL (0.4-5.4); Lymphocytes % (auto) 15.8 % (10.0-50.0); Mean Corpuscular Hemoglobin 31.3 pg (28.0-32.0); Mean Corpuscular Hgb Conc. 34.1 g/dL (32.0-36.0); Mean Corpuscular Volume 91.7 fL (80.0-100.0); Monocytes # (auto) 1.7 10 ^3/uL (0-1.3); Monocytes % (auto) 10.8 % (0.0-12.0); Neutrophils # (auto) 11.1 10 ^3/uL (1.6-8.6); Neutrophils % (auto) 70.1 % (37.0-80.0); Red Blood Cells 3.75 10^6/uL (4.0-5.20); Red Cell Distribution Width 14.6 % (11.8-14.3); White Blood Cell 15.8 10^3/uL (4.4-10.8)
[2023-10-18 09:48] LABS: Urine Bacteria MANY /hpf (None Seen); Urine Blood Negative /uL (Negative); Urine Budding Yeast OCCASIONAL /hpf (None Seen); Urine Clarity Turbid (Clear); Urine Color Yellow (Yellow); Urine Hyaline Cast MANY /lpf (0 - 2); Urine Mucus FEW (None Seen); Urine Protein, UAD TRACE (Negative); Urine Specific Gravity 1.026 (1.001-1.035); Urine Urobilinogen 2 mg/dL (Negative); Urine WBC 8 /hpf (0 - 5); Urine pH 5.5 (5.0-9.0)
[2023-10-18 11:14] LABS: Alanine Aminotransferase 22 U/L (7-40); Albumin 4.4 g/dL (3.2-4.8); Alkaline Phosphatase 71 U/L (46-116); Anion Gap 6 (5-15); Aspartate Aminotransferase 20 U/L (13-40); BUN/Creatinine Ratio 13.8 (10.0-20.0); Blood Urea Nitrogen 17 mg/dL (9-23); Calcium 9.9 mg/dL (8.5-10.1); Carbon Dioxide 26 mmol/L (20-30); Chloride 106 mmol/L (98-107); Glucose 128 mg/dL (74-106); Potassium 4.7 mmol/L (3.5-5.1); Sodium 138 mmol/L (136-145)
[2023-10-18 11:15] LABS: Bilirubin, Total 0.8 mg/dL (0.2-1.0); Creatinine, Urine 183.87 mg/dL (30.0-125.0)
[2023-10-18 11:16] LABS: Total Protein 6.8 g/dL (5.7-8.2)
== END | disposition home or self-care (01) ==
LOC: LAB 09:22
DX: E03.9 Hypothyroidism, unspecified (principal); E11.9 Type 2 diabetes mellitus without complications
CPT/HCPCS: 36415; 80053; 81001; 82043; 82570; 83036; 85025

== ENCOUNTER 2023-12-25 08:37 | Emergency (ER) | payer BC ==
[~2023-12-25] VITALS: Ht 165.1 cm; Wt 88.5 kg
[2023-12-25 09:13] LABS: Chloride 103 mmol/L (98-107); Potassium 3.9 mmol/L (3.5-5.1); Sodium 133 mmol/L (136-145)
[2023-12-25 09:14] LABS: Anion Gap 4 (5-15); Carbon Dioxide 26 mmol/L (20-30)
[2023-12-25 09:15] LABS: Basophils # (auto) 0 10 ^3/uL (0-0.2); Basophils % (auto) 0.8 % (0.0-2.0); Calcium 9.8 mg/dL (8.7-10.4); Eosinophils # (auto) 0.2 10 ^3/uL (0-0.8); Eosinophils % (auto) 2.9 % (0.0-7.0); Hematocrit 36.4 % (36.0-46.0); Hemoglobin 12.5 g/dL (12.2-16.2); Lymphocytes # (auto) 2.3 10 ^3/uL (0.4-5.4); Lymphocytes % (auto) 37.4 % (10.0-50.0); Mean Corpuscular Hemoglobin 31.4 pg (28.0-32.0); Mean Corpuscular Hgb Conc. 34.2 g/dL (32.0-36.0); Mean Corpuscular Volume 91.9 fL (80.0-100.0); Monocytes # (auto) 0.7 10 ^3/uL (0-1.3); Monocytes % (auto) 10.9 % (0.0-12.0); Platelet Count (auto) 297 10^3/uL (140-450); Red Blood Cells 3.96 10^6/uL (4.0-5.20); Red Cell Distribution Width 13.4 % (11.8-14.3); White Blood Cell 6.3 10^3/uL (4.4-10.8)
[2023-12-25 09:19] LABS: Glucose 154 mg/dL (74-106)
[2023-12-25 09:20] LABS: BUN/Creatinine Ratio 16.1 (10.0-20.0); Blood Urea Nitrogen 18 mg/dL (9-23)
[2023-12-25] MEDS: SODIUM CHLORIDE 0.9% 1,000 ML IV ONE (09:41)
[2023-12-25 12:13] LABS: Urine Bacteria FEW /hpf (None Seen); Urine Blood Negative /uL (Negative); Urine Clarity Clear (Clear); Urine Color Colorless (Yellow); Urine Protein, UAD Negative (Negative); Urine Specific Gravity 1.007 (1.001-1.035); Urine Urobilinogen Normal (Negative); Urine WBC 1 /hpf (0 - 5); Urine pH 5.5 (5.0-9.0)
[2023-12-25 12:14] VITALS: PULSE 57; RESP 17; O2SAT 92
[2023-12-25] MEDS: SODIUM CHLORIDE 0.9% 2,000 ML IV ONE (13:13)
[2023-12-25 14:40] VITALS: BP 111/64
[2023-12-25] MEDS ORDERED: LORA-1121 PO (14:40)
== END 2023-12-25 14:46 | disposition home or self-care (01) ==
LOC: ER 08:37
DX: E86.0 Dehydration (principal); I10 Essential (primary) hypertension; E78.5 Hyperlipidemia, unspecified; K21.9 Gastro-esophageal reflux disease without esophagitis; I25.10 Atherosclerotic heart disease of native coronary artery without angina pectoris; Z90.710 Acquired absence of both cervix and uterus; Z90.89 Acquired absence of other organs; Z98.890 Other specified postprocedural states; Z79.899 Other long term (current) drug therapy; Z88.2 Allergy status to sulfonamides
CPT/HCPCS: 36415; 70450; 80048; 81001; 84484; 85025; 93005; 96360; 96361; 99284; J7030

== ENCOUNTER 2024-06-06 06:40 | Emergency (ER) | payer BC ==
[~2024-06-06] VITALS: Ht 165.1 cm; Wt 79.6 kg
[~2024-06-06 06:40] MED LIST changes: +LORA-1121 PO
--- NOTE | 2024-06-06 07:23 | ED.PDOC ---
GI ASSESSMENT HPI Comments 64-year-old female with PMHx Diverticulosis presents to the ER with a chief complaint of abdominal pain and nausea x 1 day. Patient states that she felt a "pop on the left side of my stomach and then the pain continued". Patient states that pain is on her LLQ, worsens when she jumps. Patient also is reporting some nasal congestion and abdomen bloating. PSHx Hysterectomy. No other symptoms or modifying factors present at this time. Chief Complaint: Abdominal Pain Time Seen by MD: 07:11 Primary Care Provider: SONYA Reviewed Notes: Medications, Allergies Allergies: Coded Allergies: Sulfa Antibiotics (Verified Allergy, Unknown, 10/01/18) Home Meds Active Scripts Lorazepam (ATIVAN TABLET) 0.5 Mg Tb, 1 TAB PO DAILY for 10 Days, #10 TAB Prov:EMILY WEBER MD 12/25/23 Reported Medications Cetirizine Hcl (Zyrtec Allergy) 10 Mg Cap, 10 MG PO BID, CAP 10/02/18 Estradiol (Estradiol) 1 Mg Tab, TD, MG 09/30/18 Oxycodone W/ Acetaminophen (Percocet 5/325MG) 1 Tab Tb, 1 TAB PO, #90 TAB 09/30/18 Carvedilol (Coreg) 25 Mg Tab, 25 MG PO BID, TAB 09/30/18 Rosuvastatin Calcium (Crestor) 20 Mg Tab, 20 MG PO DAILY, TAB 09/30/18 Flecainide Acetate (Flecainide Acetate) 50 Mg Tab, 50 MG PO BID, TAB 09/30/18 Montelukast Sodium (Singulair) 5 Mg Chw, 10 MG PO DAILY, CHW 09/30/18 Lisinopril (Lisinopril) 2.5 Mg Tab, 5 MG PO DAILY, TAB 09/30/18 Amlodipine Besylate (NORVASC TABLET) 5 Mg Tb, 1 TAB PO DAILY, #30 TAB 5 Refills 09/30/18 Fluoxetine Hcl (Fluoxetine Hcl) 20 Mg Cap, 40 MG PO DAILY, MG 09/30/18 Levocetirizine Hydrochloride (LEVOCETIRIZINE DIHYDROCHL) Dhcl 5MG Tab, PO DAILY, TAB 12/10/15 Tizanidine Hydrochloride (TIZANIDINE HCL) 4 Mg Cap, 4 MG PO TID, CAP 12/10/15 Zolpidem Tartrate (Ambien) 10 Mg Tab, 12.5 MG PO HS, TAB 12/10/15 Naproxen (Naprosyn) 250 Mg Tab, 550 MG PO BID, TAB 12/10/15 Aspirin (ASPIRIN 81) 81 Mg Tab, 81 MG PO DAILY, TAB 12/10/15 Information Source: Patient Mode of Arrival: Ambulatory Timing: Hours, Days Duration: Since onset Prehospital treatment: None Quality: Aching Vomitus: None Stool: Normal Severity: Moderate Recent: None Recent Hx of: None Pain Location: LLQ Associated sign and symptoms: Nausea, Abdominal Pain Past Medical History PAST MEDICAL HISTORY: CAD, Depression, GERD, High Lipids, HTN Surgical History: , Hysterectomy, Tonsillectomy DELIVERY DEPARTMENT SUPERVISOR History: No Pertinent DELIVERY DEPARTMENT SUPERVISOR History Family History Family History: Reviewed,noncontributory to illness Social History Smoker: Non-Smoker Alcohol: Occasionally Drugs: Denies Drug Use Lives In: Home Constitutional: denies: chills, diaphoresis, fatigue, fever, malaise, sweats, weakness, others EENTM: reports: nose congestion; denies: blurred vision, double vision, ear bleeding, ear discharge, ear drainage, ear pain, ear ringing, eye pain, eye redness, hearing loss, mouth pain, mouth swelling, nasal discharge, nose bleeding, nose pain, photophobia, tearing, throat pain, throat swelling, voice changes, others Respiratory: denies: cough, hemoptysis, orthopnea, SOB at rest, shortness of breath, SOB with excertion, stridor, wheezing, others Cardiovascular: denies: chest pain, dizzy spells, diaphoresis, Dyspnea on exertion, edema, irregular heart beat, left arm pain, lightheadedness, palpitations, PND, syncope, others Gastrointestinal: reports: abdominal pain, nausea; denies: abdomen distended, blood streaked bowels, constipated, diarrhea, dysphagia, difficulty swallowing, hematemesis, melena, poor appetite, poor fluid intake, rectal bleeding, rectal pain, vomiting, others Genitourinary: denies: abnormal vagina bleeding, burning, dyspareunia, dysuria, flank pain, frequency, hematuria, incontinence, pain, , vagina discharge, urgency, others Neurological: denies: dizziness, fainting, headache, left sided numbness, left sided weakness, numbness, paresthesia, pre-existing deficit, right sided numbness, right sided weakness, seizure, speech problems, tingling, tremors, weakness, others Musculoskeletal: denies: back pain, gout, joint pain, joint swelling, muscle pain, muscle stiffness, neck pain, others Integumetry: denies: bruises, change in color, change in hair/nails, dryness, laceration, lesions, lumps, rash, wounds, others Allergic/Immunocompromised: denies: Difficulty Healing, Frequent Infections, Hives, Itching, others Hematologic/Lymphatic: denies: anemia, blood clots, easy bleeding, easy bruising, swollen glands, others Endocrine: denies: excessive hunger, excessive sweating, excessive thirst, excessive urination, flushing, intolerance to cold, intolerance to heat, unexplained weight gain, unexplained weight loss, others Psychiatric: denies: anxiety, bipolar disorder, depression, hopeless, panic disorder, schizophrenia, sleepless, suicidal, others All Other Systems: Reviewed and Negative Physical Exam General Appearance: Moderate Distress, Normal HEENT: Normal ENT Inspection, Pharynx Normal, TMs Normal Neck: Full Range of Motion, Non-Tender, Normal, Normal Inspection Respiratory: Chest Non-Tender, Lungs Clear, No Accessory Muscle Use, No Respiratory Distress, Normal Breath Sounds Cardiovascular: No Edema, No JVD, No Murmur, No Gallop, Normal Peripheral Pulses, Regular Rate/Rhythm Breast Exam: Deferred Gastrointestinal: LLQ, No Organomegaly, No Pulsatile Mass, Normal Bowel Sounds, Soft Genitalia: Deferred Pelvic: Deferred Rectal: Deferred Extremities: No calf tenderness, Normal capillary refill, Normal inspection, Normal range of motion, Non-tender, No pedal edema Musculoskeletal : Apperance: Normal Neurologic: Alert, cardiac rn II-XII nml as Tested, No Motor Deficits, Normal Affect, Normal Mood, No Sensory Deficits Cerebellar Function: Normal Reflexes: Normal Skin: Dry, Normal Color, Warm Peripheral Pulses: 3+ Radial (R), 3+ Radial (L) Lymphatic: No Adenopathy Was a procedure done? Was a procedure done?: No GI differential Dx Differential Diagnosis: Constipation, Diverticular disease, Esophagitis, Gastritis/PUD, Gastroenteritis X-Ray, Labs, Meds, VS Vital Signs Date Time Temp Pulse Resp B/P (MAP) Pulse Ox O2 Delivery O2 Flow Rate FiO2 06/06/24 06:51 99.4 92 16 109/77 (88) 97 Lab Test 06/06/24 07:16 Range/Units White Blood Count 6.5 4.4-10.8 10^3/uL Red Blood Count 4.22 4.0-5.20 10^6/uL Hemoglobin 12.7 12.2-16.2 g/dL Hematocrit 38.7 36.0-46.0 % Mean Corpuscular Volume 91.6 80.0-100.0 fL Mean Corpuscular Hemoglobin 30.1 28.0-32.0 pg Mean Corpuscular Hemoglobin Concent 32.9 32.0-36.0 g/dL Red Cell Distribution Width 13.8 11.8-14.3 % Platelet Count 295 140-450 10^3/uL Mean Platelet Volume 7.0 6.9-10.8 fL Neutrophils (%) (Auto) 56.7 37.0-80.0 % Lymphocytes (%) (Auto) 30.2 10.0-50.0 % Monocytes (%) (Auto) 10.0 0.0-12.0 % Eosinophils (%) (Auto) 2.2 0.0-7.0 % Basophils (%) (Auto) 0.9 0.0-2.0 % Neutrophils # (Auto) 3.7 1.6-8.6 10 ^3/uL Lymphocytes # (Auto) 2.0 0.4-5.4 10 ^3/uL Monocytes # (Auto) 0.6 0-1.3 10 ^3/uL Eosinophils # (Auto) 0.1 0-0.8 10 ^3/uL Basophils # (Auto) 0.1 0-0.2 10 ^3/uL Nucleated Red Blood Cells 0.1 % Sodium Level 137 136-145 mmol/L Potassium Level 4.0 3.5-5.1 mmol/L Chloride Level 103 98-107 mmol/L Carbon Dioxide Level 25 20-31 mmol/L Anion Gap 9 5-15 Blood Urea Nitrogen 12 9-23 mg/dL Creatinine 0.95 0.550-1.02 mg/dL Glomerular Filtration Rate Calc 67 >90 mL/min BUN/Creatinine Ratio 12.6 10.0-20.0 Serum Glucose 95 74-106 mg/dL Calcium Level 9.8 8.7-10.4 mg/dL Patient alert. Complaining of left lower quadrant pain. Vitals stable. Answering questions. History of diverticulosis. WBC within normal limits. Hemoglobin within normal limits. Mild tenderness upon deep palpation on the left lower quadrant. Kidney function within normal limits. Sinus congestion. Nasal speech. Possible sinusitis. Was given prescription of Augmentin antibiotic. Possibly will need colonoscopy. Explained to the patient. Was told to follow up with her primary care physician. Was told to come back if there is any problem. Time of 1ST Reevaluation: 07:41 Reevaluation 1ST: Unchanged Patient Education/Counseling: Diagnosis, Treatment, Prognosis Family Education/Counseling: Diagnosis, Treatment, Prognosis Departure 1 Departure Time of Disposition: 08:49 Impression: Primary Impression: Abdominal pain Qualified Codes: R10.32 - Left lower quadrant pain Additional Impression: Sinusitis Qualified Codes: J01.00 - Acute maxillary sinusitis, unspecified Disposition: 01 HOME / SELF CARE / HOMELESS Condition: Good e-Prescriptions Amoxicillin & Pot Clavulanate (Augmentin) 500 Mg Tab 1 TAB PO BID for 10 Days, #20 TAB Prov: EMILY WEBER MD 06/06/24 Discharged With: Self Critical Care Note Critical Care Time?: No Stability Stability form required: No Heart Score Heart Score: Heart Score Response (Comments) Value History N/A 0 EKG N/A 0 Age N/A 0 Risk Factors N/A 0 Troponin N/A 0 Total 0 I personally scribed for EMILY WEBER MD ([email or web address]) on 06/06/24 at 07:23. Electronically submitted by Bubba Montanez ([email or web address]). EMILY WEBER MD Jun 06, 2024 07:23
[2024-06-06 07:52] LABS: Basophils # (auto) 0.1 10 ^3/uL (0-0.2); Basophils % (auto) 0.9 % (0.0-2.0); Eosinophils # (auto) 0.1 10 ^3/uL (0-0.8); Eosinophils % (auto) 2.2 % (0.0-7.0); Hematocrit 38.7 % (36.0-46.0); Hemoglobin 12.7 g/dL (12.2-16.2); Lymphocytes % (auto) 30.2 % (10.0-50.0); Mean Corpuscular Hemoglobin 30.1 pg (28.0-32.0); Mean Corpuscular Hgb Conc. 32.9 g/dL (32.0-36.0); Mean Corpuscular Volume 91.6 fL (80.0-100.0); Monocytes # (auto) 0.6 10 ^3/uL (0-1.3); Neutrophils # (auto) 3.7 10 ^3/uL (1.6-8.6); Neutrophils % (auto) 56.7 % (37.0-80.0); Nucleated Red Blood Cells % 0.1 %; Platelet Count (auto) 295 10^3/uL (140-450); Red Blood Cells 4.22 10^6/uL (4.0-5.20); Red Cell Distribution Width 13.8 % (11.8-14.3); White Blood Cell 6.5 10^3/uL (4.4-10.8)
[2024-06-06 07:54] LABS: Chloride 103 mmol/L (98-107); Sodium 137 mmol/L (136-145)
[2024-06-06 07:55] LABS: Anion Gap 9 (5-15); Calcium 9.8 mg/dL (8.7-10.4); Carbon Dioxide 25 mmol/L (20-31)
[2024-06-06 08:00] LABS: BUN/Creatinine Ratio 12.6 (10.0-20.0); Blood Urea Nitrogen 12 mg/dL (9-23); Glucose 95 mg/dL (74-106)
[2024-06-06] MEDS ORDERED: AMOX500T86 PO (08:51)
--- NOTE | 2024-06-06 08:59 | DVH ---
Exam: CT CT AB PEL WO CON-NO ORAL OR IV History: diverticulosis Comparison Study: None Technique: Multidetector spiral CT of the abdomen was performed from lung bases to pubic symphysis. I maging was performed without IV contrast. Axial, coronal and sagittal multiplanar reformats were obta ined from the axial data set by the technologist. Radiation Dose : 1. Abdomen/Pelvis: CTDIvol 11.74 mGy, DLP 555.21 mGy*cm. Findings: Evaluation of solid organs is limited due to lack of intravenous contrast use. Lung Bases: No acute or significant lung base finding. Normal heart size. No pleural or pericardial effusion. Liver: The liver is normal in size. No focal lesions. Gallbladder and Biliary Tree: Unremarkable Spleen: Unremarkable Pancreas: The pancreas is grossly normal in appearance. Adrenal Glands: Unremarkable Kidneys: Left upper pole cyst measures 3.0 cm. Punctate 0.1 cm nonobstructing stone in the midpole of the left kidney. Bladder: Grossly unremarkable for degree of distention. Bowel: The stomach is grossly normal in appearance. Diverticulosis. The appendix is not visualized; h owever, no secondary findings of acute appendicitis identified. Ascites: Absent Lymphadenopathy: No mesenteric, retroperitoneal or periportal lymphadenopathy. Abdominal Wall and Mesentery: Unremarkable. Vasculature: The visualized abdominal aorta is normal in size and caliber. Evaluation of abdominal a nd pelvic vessels is limited due to lack of intravenous contrast. Pelvic Organs: Unremarkable Musculoskeletal: No aggressive focal bony lesions, acute fractures or dislocation. IMPRESSION: Diverticulosis. Punctate 0.1 cm nonobstructing stone in the midpole of the left kidney. Radiation optimization: All CT scans at this facility use at least one of these dose optimization twan hniques: automated exposure control mA and/or kV adjustment per patient size (includes targeted exam s where dose is matched to clinical indication) or iterative reconstruction.
[2024-06-06 09:02] LABS: Urine Bacteria None Seen /hpf (None Seen)
[2024-06-06 09:25] LABS: Urine Blood Negative /uL (Negative); Urine Clarity Clear (Clear); Urine Color Light-Yellow (Yellow); Urine Protein, UAD Negative (Negative); Urine Specific Gravity 1.021 (1.001-1.035); Urine Squamous Epithelial Cell FEW /hpf (<5); Urine Urobilinogen Normal (Negative); Urine WBC 3 /HPF (0-5)
[2024-06-06 09:54] VITALS: BP 111/60; PULSE 80; RESP 18; TEMP 97.8; O2SAT 98
== END 2024-06-06 10:00 | disposition home or self-care (01) ==
LOC: ER 06:40 → EEVIPCON 06:40 → ER 10:00
DX: R10.9 Unspecified abdominal pain (principal); J32.9 Chronic sinusitis, unspecified; I10 Essential (primary) hypertension; F32.A Depression, unspecified; I25.10 Atherosclerotic heart disease of native coronary artery without angina pectoris; K21.9 Gastro-esophageal reflux disease without esophagitis; K57.30 Diverticulosis of large intestine without perforation or abscess without bleeding; Z79.82 Long term (current) use of aspirin; Z79.899 Other long term (current) drug therapy; Z90.710 Acquired absence of both cervix and uterus; Z88.2 Allergy status to sulfonamides
CPT/HCPCS: 36415; 74176; 80048; 81001; 85025